=== PATIENT | female | born 1945 | race Caucasian/White ===

== ENCOUNTER 2018-02-07 11:57 | Emergency (ER) | payer OTHER ==
[~2018-02-07] VITALS: Ht 160 cm; Wt 80.9 kg
[~2018-02-07 11:57] MED LIST: BETAPACE 80 MG80 MG PO; CARDIZEM CD180 MG PO; COZAAR100 MG PO; ESTRACE1 MG PO; LEVOTHROID50 MCG PO; LIPITOR10 MG PO; POTASSIUM99 M1; PRILOSEC20 MG; PRISTIQ50 MG PO; VITAMIN B COMPL1 TA1 PO; VITAMIN D5000 UNIT; VOLTAREN75 MG PO
[2018-02-07 12:00] VITALS: Ht 160 cm; Wt 80.9 kg
[2018-02-07] MEDS ORDERED: HYDROCHLOROTHIA25 MG PO (12:04)
[2018-02-07] MEDS ORDERED: BAYER CHEWABLE81 MG PO (12:04)
[2018-02-07] MEDS ORDERED: NORVASC5 MG PO (12:04)
[2018-02-07] MEDS ORDERED: NEXIUM20 MG PO (12:05)
[2018-02-07 12:40] LABS: BASOPHILS 0.2 % (0-2); EOSINOPHILS 1.7 % (0-7); HEMATOCRIT 34.9 % (36.0-48.0); IMMATURE GRANULOCYTES 0.2 % (0-5); LYMPHOCYTES 17.8 % (15-50); MCH 28.2 pg (26.0-34.0); MCHC 34.4 g/dL (31.0-37.0); MCV 81.9 fL (80.0-100.0); MEAN PLATELET VOLUME 9.6 fL (7.4-10.4); MONOCYTES 7.4 % (2-11); NEUTROPHILS 72.7 % (40-80); RBC 4.26 10x6/uL (4.00-5.40); RDW 14.8 % (11.5-14.5); WBC 4.7 10x3/uL (4.8-10.8)
[2018-02-07 12:41] LABS: PLATELET COUNT 167 10x3/uL (130-400)
[2018-02-07 12:54] LABS: ALBUMIN 2.9 g/dL (3.4-5.0); ANION GAP 13.6 mmol/L (8-16); BILIRUBIN - TOTAL 0.73 mg/dL (0.2-1.3); CALCIUM 9.4 mg/dL (8.5-10.1); CARBON DIOXIDE 27.7 mmol/L (21.0-32.0); CREATININE - SERUM 1.1 mg/dL (0.6-1.3); POTASSIUM - SERUM 3.3 mmol/L (3.5-5.1)
[2018-02-07 15:28] LABS: APPEARANCE CLEAR (CLEAR); BILIRUBIN NEGATIVE (NEGATIVE); COLOR YELLOW (YELLOW); GLUCOSE NEGATIVE (NEGATIVE); KETONE SMALL mg/dL (NEGATIVE); NITRITE NEGATIVE (NEGATIVE); PROTEIN TRACE mg/dL (NEGATIVE); UROBILINOGEN NORMAL (NORMAL)
[2018-02-07 15:29] LABS: BACTERIA MODERATE /hpf (NONE SEEN); EPITHELIAL CELLS OCC /hpf (0-5); RED CELLS - URINE OCC /hpf (0-5); WHITE CELLS - URINE 0-5 /hpf (0-5)
[2018-02-07] MEDS ORDERED: ZOFRAN ODT4 MG/UDTAB PO (16:20)
[2018-02-07] MEDS ORDERED: VOLTAREN75 MG PO (16:21)
[2018-02-07 16:56] VITALS: BP 126/78
== END 2018-02-07 16:58 | disposition home or self-care (01) ==
LOC: D.ER 11:57
PROVIDERS: Family Medicine
DX: R11.0 Nausea (principal); M79.18 Myalgia, other site; B34.9 Viral infection, unspecified; R51 Headache; M54.5 Low back pain; I10 Essential (primary) hypertension